=== PATIENT | female | born 1955 | race Caucasian/White ===

== ENCOUNTER 2020-02-13 05:28 | Emergency (ER) | payer BC, SELFPAY ==
--- NOTE | ~2020-02-13 | CT_ITS ---
EXAMINATION: CT abdomen pelvis w con DATE: 02/13/2020 06:36 INDICATION: Right flank pain. TECHNIQUE: Computed tomography (CT) of the abdomen and pelvis was performed with 100 mL Omnipaque 350 intravenous contrast. Automated exposure control and iterative reconstruction technique were employe d. The dose-length product was 244.22 mGy-cm. COMPARISON: CT abdomen and pelvis 10/09/2014 FINDINGS: The visualized portions of the lung bases demonstrate mild atelectasis. No pleural effusion . The heart size is normal. No pericardial effusion. The liver, gallbladder, spleen, pancreas, and ad renal glands are normal. There is a 2.1 cm cyst in right kidney. There is a delayed right-sided contr ast nephrogram. There is mild right hydronephrosis and hydroureter. There is a 3 mm stone in distal r ight ureter. There is a 6 mm cyst in left kidney. There are 6 stones in left kidney measuring up to 4 mm. There is diverticulosis of the colon without evidence of diverticulitis. There are no dilated lo ops of bowel. The appendix is normal. There are no pathologically enlarged lymph nodes. There is no f ree intraperitoneal fluid. There is severe lower lumbar spondylosis. IMPRESSION: 1. 3 mm stone in distal right ureter with mild right hydronephrosis and hydroureter. 2. Nonobstructing left kidney stones. Reviewed, dictated and finalized at location A. IMPRESSION: 1. 3 mm stone in distal right ureter with mild right hydronephrosis and hydrour eter. 2. Nonobstructing left kidney stones.
[2020-02-13 05:34] VITALS: BP 124/65; PULSE 90; RESP 20; TEMP 36.5; O2SAT 99
[2020-02-13] MEDS: ONDANSETRON INJ 4 MG/2 ML VIAL IV PUSH (05:49)
[2020-02-13] MEDS: SODIUM CHLORIDE 0.9% IV 1,000 ML 999 ML IV CONT (05:49)
--- NOTE | 2020-02-13 05:52 | ED.ABDPAIN ---
HPI - Abdominal Pain General Chief Complaint: Abdominal Pain <Savannah Dominique MD - Last Filed: 02/15/20 07:45> Stated Complaint: kidney stones <Savannah Dominique MD - Last Filed: 02/15/20 07:45> Time Seen by Provider: 02/13/20 05:42 <Savannah Dominique MD - Last Filed: 02/15/20 07:45> History of Present Illness HPI narrative: Patient presents to the ED with her for severe right flank pain since 2 AM. She has a history of kidney stones and wants had to have surgery for 1. She does not know the size of her large stone. She has not had fever chills or sweats. She gauges the pain at 9 out of 10. She has had blood in her urine. She has not been sick otherwise. The pain is in her posterior right flank and radiates around to the right groin. Pain is similar to other kidney stones. <Savannah Dominique MD - Last Filed: 02/15/20 07:45> MD elicited complaint: abdominal pain and flank pain <Savannah Dominique MD - Last Filed: 02/15/20 07:45> Pertinent past history: kidney stones <Savannah Dominique MD - Last Filed: 02/15/20 07:45> Onset (ago): hour(s) <Savannah Dominique MD - Last Filed: 02/15/20 07:45> Pain Consistency: constant <Savannah Dominique MD - Last Filed: 02/15/20 07:45> Location: R flank <Savannah Dominique MD - Last Filed: 02/15/20 07:45> Severity: severe <Savannah Dominique MD - Last Filed: 02/15/20 07:45> Quality: stabbing <Savannah Dominique MD - Last Filed: 02/15/20 07:45> Radiation: RLQ <Savannah Dominique MD - Last Filed: 02/15/20 07:45> Exacerbating factors: nothing <MD Anand Kemp Last Filed: 02/15/20 07:45> Relieving factors: nothing <Savannah Dominique MD - Last Filed: 02/15/20 07:45> Related Data Home Medications: Home Medications Medication Instructions Recorded Confirmed erenumab-aooe [Aimovig mg SUBCUT 02/13/20 Autoinjector] topiramate 02/13/20 verapamil mg PO 02/13/20 <Savannah Dominique MD - Last Filed: 02/15/20 07:45> Allergies/Adverse Reactions: Allergies Allergy/AdvReac Type Severity Reaction Status Date / Time codeine Allergy Severe Vomiting Verified 02/13/20 05:39 <Savannah Dominique MD - Last Filed: 02/15/20 07:45> Review of Systems Review of Systems: Narrative: CONSTITUTIONAL: Denies fever, chills, or sweats. EYES: Denies visual changes, redness, or discharge. ENT: Denies rhinorrhea, congestion, sore throat, or otalgia. CARDIOVASCULAR: Denies chest pain, palpitations, or edema. RESPIRATORY: Denies cough or dyspnea. GASTROINTESTINAL: She has severe abdominal pain, and nausea, vomiting, but not or diarrhea. GENITOURINARY: Denies dysuria but has hematuria. SKIN: Denies rash or itching. MUSCULOSKELETAL: Denies back pain, joint pain, or myalgia. NEUROLOGIC: Denies headache, numbness, or weakness. <Savannah Dominique MD - Last Filed: 02/15/20 07:45> All systems reviewed & are unremarkable except as noted in HPI and below <Savannah Dominique MD - Last Filed: 02/15/20 07:45> [facility] Social History Social History: Social History (Updated 02/13/20 @ 05:55 by Savannah Dominique MD) Smoking status: Never smoker Alcohol intake: never Substance use: never <Savannah Dominique MD - Last Filed: 02/15/20 07:45> Exam Narrative: Exam Narrative: GENERAL: Walking bent over. Moderate distress. HEAD: Normocephalic, atraumatic. EYES: PERRLA and EOMI. ENT: Nares clear, no rhinorrhea or epistaxis. Mucous membranes moist. NECK: Supple. CHEST: Clear to auscultation. No respiratory distress. HEART: Regular rate and rhythm. No murmur heard. Normal peripheral pulses. ABDOMEN: Soft, nontender, nondistended, normal active bowel sounds. EXTREMITIES: Normal range of motion. No edema. SKIN: Warm, dry, no rash. NEURO: No focal deficits. Alert and oriented x3. PSYCH: Normal mood and affect. <Savannah Dominique MD - Last Filed: 02/15/20 07:45> Course Vital Signs Vital signs: Vital Signs Temperature 97.7 F 02/13/20 05:34 P
[2020-02-13] MEDS: MORPHINE SULFATE 4 MG/ML INJ IV PUSH ×2 (05:56→07:00)
[2020-02-13] MEDS: TAMSULOSIN HCL 0.4 MG CAPSULE PO (05:56)
[2020-02-13 06:13] LABS: Basophils Absolute Auto 0.1 K/mm3 (0.0-0.1); Basophils Percent Auto 0.5 % (0.2-1.2); Eosinophils Absolute Auto 0.1 K/mm3 (0-0.3); Eosinophils Percent Auto 0.7 % (0-4.4); Hematocrit 38.7 % (37.0-47.0); Hemoglobin 13.1 g/dL (12.0-15.0); Immature Granulocyte Absolute 0.04 K/mm3 (0.00-0.031); Immature Granulocyte Percent A 0.4 % (0-0.5); Lymphocytes Absolute Auto 2.49 K/mm3 (0.9-3.2); Mean Corpuscular HGB Conc 33.9 g/dl (32-36); Mean Corpuscular Hemoglobin 30.1 pg (26-34); Mean Platelet Volume 10.4 fl (7.4-10.4); Monocytes Absolute Auto 0.4 K/mm3 (0.1-0.6); Monocytes Percent Auto 3.7 % (2.6-8.5); Neutrophils Absolute Auto 6.6 K/mm3 (1.3-6.7); Neutrophils Percent Auto 68.7 % (45.5-73.1); Platelet Count Result 261 k/mm3 (150-375); Red Blood Count 4.35 M/mm3 (4.2-5.4); Red Cell Distribution Width 11.9 % (11.5-14.5); White Blood Count 9.6 K/mm3 (4.5-10.0)
[2020-02-13 06:20] LABS: Add Urine Microscopic? YES; Appearance Urine Turbid (Clear); Bilirubin Urine Negative (Negative); Blood Urine 3+ (Negative); Color Urine Yellow (Yellow); Glucose Urine UA Negative (Negative); Ketones Urine Negative (Negative); Leukocyte Esterase Ur Negative LEU/UL (Negative); Mucus Urine Rare /lpf; Nitrate Urine Negative (Negative); Protein Urine 1+ mg/dL (Negative); RBC Urine >75 /hpf (0-2); Specific Grav Ur 1.014 (1.001-1.035); Squamous Epithelial Cell Urine Occasional /hpf (Few); Urobilinogen Urine Negative mg/dL (<2.0); WBC Urine 51-75 /hpf
--- NOTE | 2020-02-13 06:23 | PC.NURSE ---
Patient being taken to CT.
[2020-02-13 06:24] LABS: Alanine Aminotransferase 20 U/L (4-35); Alkaline Phosphatase 89 U/L (38-126); Aspartate Amino Transferase 26 U/L (14-36); Bilirubin,Total 0.4 mg/dL (0.2-1.3); Blood Urea Nitrogen 16 mg/dL (7-17); Calcium 9.1 mg/dL (8.4-10.2); Carbon Dioxide 22 mmol/L (22-30); Chloride 111 mmol/L (98-107); Estimated Glomerular Filt Rate 41; Glucose 129 mg/dL (65-105); Sodium 141 mmol/L (137-145)
[2020-02-13 06:27] LABS: Lipase 232 U/L (23-300)
[2020-02-13] MEDS: METOCLOPRAMIDE HCL INJ 10 MG/2 ML VIAL IV PUSH (07:00)
[2020-02-13 07:13] VITALS: BP 102/55; PULSE 81; RESP 15; O2SAT 100
--- NOTE | 2020-02-13 07:14 | PC.NURSE ---
ASSUMED PT CARE FROM [facility] AT THIS TIME AFTER BEDSIDE REPORT.
--- NOTE | 2020-02-13 07:39 | PC.NURSE ---
PT STATES THAT HER NAUSEA HAS SUBSIDED AT THIS TIME.
[2020-02-13 08:24] VITALS: BP 108/68; PULSE 78; RESP 18; O2SAT 100
== END 2020-02-13 08:25 | disposition home or self-care (01) ==
PROVIDERS: Emergency Medicine; Emergency Provider Emergency Medicine
DX: N13.2 Hydronephrosis with renal and ureteral calculous obstruction (principal)
CPT/HCPCS: 36415; 74177; 80053; 81001; 83690; 85025; 87086; 96361; 96365; 96375; 96376; 99284; A9270; J0696; J2270; J2405; J2765; J7030; Q9967

== ENCOUNTER 2024-09-08 15:41 | Emergency (ER) | payer MEDICARE, SELFPAY ==
--- NOTE | 2024-09-08 15:42 | ED_ITS ---
HPI - Back Pain/Injury General Chief Complaint: Upper Respiratory Infection Stated Complaint: back pain Time Seen by Provider: 09/08/24 15:42 Source: patient Mode of arrival: ambulatory Limitations: no limitations History of Present Illness HPI Narrative: Kira is a 69-year-old female patient presenting to the clinic today with complaints of right flank pain that started around 2:00 a.m. this morning. She reports that woke her up. Is having pain with taking a deep breath. History of PE in 2022. Was in the hospital for 7 days with PE in 2022. States that this feels just like the back pain she had when she had a pulmonary embolism in 2022. She contacted her primary care doctor and they suggested she come to the urgent care to rule out a urinary tract infection. She denies any urinary symptoms. Denies any fevers, chills, or body aches. Is having pain to the right flank with inspiration. Denies any chest pain or shortness of breath. Just got over having flu or COVID possibly last week. Takes a baby aspirin daily. Related Data Home Medications ?Medication ?Instructions ?Recorded ?Confirmed ?Last Taken ?Type topiramate 25 mg tablet 02/13/20 Unknown History aspirin 81 mg tablet,delayed 81 mg PO DAILY 09/08/24 Unknown History release (Adult Low Dose Aspirin) lisinopril 10 mg tablet mg 09/08/24 Unknown History rizatriptan 10 mg tablet mg 09/08/24 Unknown History Allergies Allergy/AdvReac Type Severity Reaction Status Date / Time codeine AdvReac Mild Vomiting Verified 09/08/24 15:53 Review of Systems Review of Systems: Pertinent positives per HPI. Patient denies any fever, chills, rash, headache, visual changes, dizziness, cough, shortness of breath, chest pain, palpitations, nausea, vomiting, diarrhea, constipation, abdominal pain, or any urinary issues. PMFSH Social History Social History Smoking status: Never smoker Alcohol intake: never Substance use: never Comments At the time of my signature, I reviewed and agree with the nursing past medical, surgical, social, and family history. There is no relevant family history pertinent to the patient complaint. Exam Narrative: General: Well-developed, well nourished, in no apparent distress Head: Normocephalic, atraumatic Eyes: Pupils equally round and reactive to light bilaterally, EOM intact, sclera and conjunctive clear, no discharge, lids normal Ears: TMs intact and clear, ear canals clear, no drainage, grossly hearing normal. Nose: Nares patent, no discharge, no inflammation, no sinus tenderness. Mouth: Oral pharynx without lesions or masses, good dentition, MMM. Neck: Supple, trachea midline, no enlargement of anterior or posterior cervical nodes, no thyroid masses or goiter palpable. Cardio: Regular rate and rhythm, s1 and s2 normal, no murmur appreciated. Resp: Clear to auscultation bilaterally, no rhonchi, rales, wheezing or rubs Course Course Emergency Course: Portions of this record may have been created with voice recognition software. Level of Care: Express Care Visit Vital Signs Vital signs: Vital signs reviewed Transfer Transfered to: [facility] Transportation: Other (Private car) Transfer rationale: right flank pain-history of PE Accepting physician: Dr. Bose Transfer comments: Private car MDM - Back Pain/Injury MDM Narrative Medical decision making narrative: At the time of visit patient is resting comfortably on the exam table. Patient appears to be nontoxic. Plan: Patient reports the right flank pain feels similar as to when she had a pulmonary embolism in 2022. Patient denies any urinary symptoms or history of kidney stones. Recommend transfer to the ER for further evaluation. Patient would like to be transfer to [facility] in [place], [place]. Contacted Analisa OROZCO at [facility] emergency room and report was given for continuity of care in Dr. Bose accepts patient for transfer. Patient's to drive patient to the hospital Differential Diagnosis Differential diagnosis: Likely renal colic, pyelonephritis, thoracic back pain, AAA, discitis and other (Pulmonary embolism) Discharge Plan Discharge Clinical Impression: Right flank pain Patient Disposition: Acute Care Hospital Condition: Stable Instructions: Antibiotic Form Patient Language: [place]ican Prescriptions: No Action rizatriptan 10 mg tablet lisinopril 10 mg tablet aspirin [Adult Low Dose Aspirin] 81 mg tablet,delayed release (DR/EC) 81 mg PO DAILY topiramate 25 mg tablet Follow-up/Referrals: Janki,Shadia Rodriges NP [Primary Care Provider] - Time of Disposition: 16:16 Quality NIHSS Nursing Documentation ED NIHSS nursing documentation: reviewed/agree
--- OUTSIDE RECORDS SUMMARY | 2024-09-08 15:43 | XMS_ITS | Encounter Summary ---
Author Organization [facility] Address [facility] [place] [address] Care Team Providers Care Police Reserves Commander Name Role Phone Shadia Shearer Primary Care Provider [phone] Nieves Nathan MD Unavailable [phone] Roni London MD Unavailable [phone] Reason for Visit * Reason Onset Date Comments Back Pain 09/08/2024 Encounter Details Date Type Department Care Team (Late st Contact Info) Description 09/08/2024 Telephone [facility] - [place] [address] [place] [address] Shadia Shearer APNP [address] [place] [address] Back Pain Social History Tobacco Use Types Packs/Day Years Used Date Smoking Tobacco: Never Smokeless Tobacco: Never Alcohol Use Standard Drinks/Week Comments Yes 0 (1 standard drink = 0.6 oz pure alcohol) a taste of wine maybe q3 months- (03/13/2020) Humiliation, Afraid, Rape, and Kick questionnair e Answer Date Recorded Within the last year, have y ou been afraid of your partner or ex-partner? No 04/08/2023 Within the last year, have y ou been humiliated or emotionally abused in other ways by your partner or ex-partner? No Within the last year, have y ou been kicked, hit, slapped, or otherwise physically hurt by your partner or ex-partner? No 04/08/2023 Within the last year, have y ou been raped or forced to have any kind of sexual activity by your partner or ex-partner? No 04/08/2023 AUDIT-C Answer Date Recorded Q1: How often do you have a drink containing alc ohol? Never 03/13/2020 Average Number of Drinks Not on file 020 Frequency of Binge Drinking Not on file 02/23 Overall Financial Resource Strain (CARDIA) Answe r Date Recorded How hard is it for you to pa y for the very basics like food, housing, medical care, and heating? Not hard at all 04/08/2023 PHQ-2 Answer Date Recorded Patient Health Questionnaire-2 Score 0 03/03/2023 [facility] - Occupational Stress Questionnaire Answer Date Recorded Do you feel stress - tense, restless, nervous, or anxious, or unable to sleep at night because your mind is troubled all the time - these days? Not at all 04/08/2023 Hunger Vital Sign Answer Date Recorded Within the past 12 months, y ou worried that your food would run out before you got the money to buy more. Never true 04/08/20 23 Within the past 12 months, t he food you bought just didn't last and you didn't have money to get more. Never true 04/08/2023 PRAPARE - Transportation Answer Date Re corded In the past 12 months, has l ack of transportation kept you from medical appointments or from getting medications? No 03/26 In the past 12 months, has l ack of transportation kept you from meetings, work, or from getting things needed for daily living? No 04/08/2023 Housing Stability Vital Sign Answer Daryl e Recorded In the last 12 months, was t here a time when you were not able to pay the mortgage or rent on time? No 04/08/2023 In the last 12 months, how many places have you lived? 1 04/08/2023 In the last 12 months, was t here a time when you did not have a steady place to sleep or slept in a care home (including now)? No 04/08/2023 Comments No Sex and Gender Information Value Date Recorded Sex Assigned at Not on file Legal Sex Female 9:42 AM MED SPEC Gender Identity Not on file Sexual Orientation Not on file documented as of this encounter Functional Status * Are you deaf or do you have serious difficulty hearing Answer Date of Assessment Author Status No 04/08/2023 2:00 PM Jumana Figueroa RN Active * Are you blind or do you have serious difficulty seeing, even when wearing glasses? Answer Date of Assessment Author Status No 04/08/2023 2:00 PM Jumana Figueroa RN Active * Do you have serious difficulty walking or climbing stairs? Answer Date of Assessment Author Status Yes 04/08/2023 2:00 PM Jumana Figueroa RN Active * Do you have difficulty dressing or bathing? Answer Date of Assessment Author Status No 04/08/2023 2:00 PM Jumana Figueroa RN Active * Because of a physical, mental, or emotional condition, do you have difficulty doing errands alone such as visiting a doctor's office or shopping? Answer Date of Assessment Author Status No 04/08/2023 2:00 PM Jumana Figueroa RN Active documented as of this encounter Mental Status * Because of a physical, mental, or emotional condition, do you have serious difficulty concentrating, remembering, or making decisions? Answer Entry Date Author Status No 04/08/2023 2:00 PM Jumana Figueroa RN Active documented in this encounter Progress Notes * Stephenie Nunez CMA - 09/08/2024 3:15 PM CST Pt states she is having pain in the lower right side of her back that is increasing throughout the day, unable to lay down. Advised that she go to urgent care for a work up. PT agreed. SPEC * Dedra Saunders - 09/08/2024 2:37 PM CST Symptoms: right side of back is in pain, when taking deep breaths it is painful Duration: this morning, gradually gets worse as the day carries on Using any Rx or OTC medications (If yes, please list): heating pad Any additional information from caller: please advise ph. [phone] SPEC documented in this encounter Plan of Treatment Upcoming Encounters Date Type Department Care Team (Late st Contact Info) Description 09/12/2024 8:00 AM MED SPEC Office Visit [facility] - [place] [address] [place] [phone] Shadia Shearer APNP [address] [place], [place] [phone] 12/13/2024 9:30 AM CDT Office Visit [facility] [phone] Ana Paula Matias MD [facility]. [facility] [address] [place] [address] documented as of this encounter Goals Goal Patient Goal Type Associated Problems Recent Progress Patient-Stated? Author Patient will return to prior living situation and remain independent in ADLs upon discharge from hospital Lifestyle No Amaya Lopes, RN documented as of this encounter Visit Diagnoses Not on filedocumented in this encounter Additional Health Concerns Assessment Noted Time PHQ-9 Depression Total Score: 0 03/03/20 23 11:32 AM CDT documented as of this encounter Care Teams Police Reserves Commander Relationship Specialty Start Date End Date Shadia Shearer APNP [address] [place], [place] [phone] PCP - General NURSE PRACTITIONER 08/11/18 [place] [address] [place] [address] [address] [place] [address] Referring Physician RADIATION ONCOLOGY 01/28/22 Roni London MD [address] [place] [address] MEDICAL OFFICE BUILDING [address] [place] [address] INTERNAL MEDICINE 01/28/22 documented as of this encounter
--- OUTSIDE RECORDS SUMMARY | 2024-09-08 15:43 | XMS_ITS | Patient Health Summary ---
Author Organization [facility] Address [address] [place] [address] Care Team Providers Care Landscape Drafter Name Role Phone Unavailable Primary Care Provider Unavailabl e Note from [facility],non-owned Affiliates and Associated Physician Practices is amultiple site organization consisting of ambulatory clinics and hospital sitesin [place], [place] and [place]. This disclosure is being madepursuant to the Care Everywhere program and may not contain all information available regarding this patient. Last updated 18.[facility] edjing Social History Tobacco Use Types Packs/Day Years Used Date Smoking Tobacco: Never Assessed Sex and Gender Information Value Date Recorded Sex Assigned at Not on file Gender Identity Not on file Sexual Orientation Not on file Procedures * DERMATOPATHOLOGY(Performed 06/02/2023) Performed for Squamous cell carcinoma of skin of right upper limb, including shoulder * DERMATOPATHOLOGY(Performed 04/05/2023) Performed for Neoplasm of uncertain behavior of skin Results * DERMATOPATHOLOGY (06/02/2023 12:00 AM CLERICAL ASSISTANT) Only the most recent of2 resultswithin the time period is included. Case Report Dermatopathology Report Case: [id number] Authorizing Provider: Sacha Gilmore MD Collected: 06/02/2023 12:00 AM Ordering Location: [facility] DermPath Lab Received: 06/03/2023 01:27 PM Pathologist: Pilar Spear MD Specimen: Skin, right anterior shoulder 3 3:49 PM CLERICAL ASSISTANT DERMATOPATHOLOGY LABORATORY Final Diagnosis Specimen A. SKIN, right anterior shoulder: DERMAL SCAR RESIDUAL SQUAMOUS CELL CARCINOMA NOT IDENTIFIED (L90.5) 3 3:49 PM CLERICAL ASSISTANT DERMATOPATHOLOGY LABORATORY Clinical History Squamous Cell Carcinoma. Check Margins. 3 3:49 PM CLERICAL ASSISTANT DERMATOPATHOLOGY LABORATORY Gross Description Specimen A: Received is one formalin filled container labeled with the patient's name and designated right anterior shoulder. The specimen consists of a non-oriented ellipse of skin measuring [id number] mm. The epidermal surface is unremarkable. The margin is inked green. The 12 o'clock and 6 o'clock tips are submitted in cassette 1. The remainder of the ellipse is serially sectioned and submitted in cassette 2-3. Jar 0. 3 3:49 PM [facility] DERMATOPATHOLOGY LABORATORY Microscopic Description Specimen A. SKIN, right anterior shoulder: There are fibroblasts and collagen bundles oriented parallel to the skin surface. There are elongated blood vessels, some of which are oriented perpendicular to the skin surface. No residual squamous cell carcinoma is identified. 3 3:49 PM [facility] DERMATOPATHOLOGY LABORATORY Disclaimer An external and internal positive and negative controls are appropriate for the histochemical, immunohistochemical and immunofluorescence stain(s) in this case (if any), except where stated explicitly. The performance characteristics of the stain(s) cited in this report were developed and its performance characteristic determined by the Dermatopathology Laboratory at [facility], directed by Dr. Shannon Gilbert. These tests need not be, and therefore are not, approved by the [place] Food and Drug Administration. The tests are used for clinical purposes. Billing Codes Specimen Charges Stain Charges 22231 1 3 3:49 PM [facility] DERMATOPATHOLOGY LABORATORY Embedded Images 3 3:49 PM [facility] DERMATOPATHOLOGY LABORATORY Pathology/Cytolog y TISSUE SPECIMEN FROM SKIN / Unknown 06/02/2023 06/03/2023 1:27 PM [facility] Scaha Gilmore MD LAB - PATHOLOGY/CYTO LOGY ORDERABLES DERMATOPATHOLOGY LABORATORY [facility] - Department of Dermatology [address], [address] [phone]
--- OUTSIDE RECORDS SUMMARY | 2024-09-08 15:43 | XMS_ITS | Encounter Summary ---
Author Organization [facility] Address [address] [facility] [place] [address] Care Team Providers Care Grading Supervisor Name Role Phone Unavailable Primary Care Provider Unavailabl e Encounter Details Date Type Department Care Team (Late st Contact Info) Description 06/02/2023 Lab Requisition [facility] - DermPath Lab [address] [facility] [place] [address] Sacha Gilmore MD [facility] [address] [place] [phone] Squamous cell carcinoma of skin of right upper limb, including shoulder Social History Tobacco Use Types Packs/Day Years Used Date Smoking Tobacco: Never Assessed Sex and Gender Information Value Date Recorded Sex Assigned at Not on file Gender Identity Not on file Sexual Orientation Not on file documented as of this encounter Plan of Treatment Not on file documented as of this encounter Procedures Procedure Name Priority Date/Time Associated Diagnosis Comments DERMATOPATHOLOGY Routine 06/02/2023 12:0 0 AM MECHANICAL APPLICATIONS ENGINEER Squamous cell carcinoma of skin of right upper limb, including shoulder documented in this encounter Results * DERMATOPATHOLOGY (06/02/2023 12:00 AM MECHANICAL APPLICATIONS ENGINEER) Case Report Dermatopathology Report Case: [id number] Authorizing Provider: Sacha Gilmore MD Collected: 06/02/2023 12:00 AM Ordering Location: [facility] DermPath Lab Received: 06/03/2023 01:27 PM Pathologist: Pilar Spear MD Specimen: Skin, right anterior shoulder 3 3:49 PM MECHANICAL APPLICATIONS ENGINEER DERMATOPATHOLOGY LABORATORY Final Diagnosis Specimen A. SKIN, right anterior shoulder: DERMAL SCAR RESIDUAL SQUAMOUS CELL CARCINOMA NOT IDENTIFIED (L90.5) 3 3:49 PM MECHANICAL APPLICATIONS ENGINEER DERMATOPATHOLOGY LABORATORY Clinical History Squamous Cell Carcinoma. Check Margins. 3:49 PM [facility] DERMATOPATHOLOGY LABORATORY Gross Description Specimen A: Received is one formalin filled container labeled with the patient's name and designated right anterior shoulder. The specimen consists of a non-oriented ellipse of skin measuring 09e85a3 mm. The epidermal surface is unremarkable. The margin is inked green. The 12 o'clock and 6 o'clock tips are submitted in cassette 1. The remainder of the ellipse is serially sectioned and submitted in cassette 2-3. Jar 0. 3:49 PM [facility] DERMATOPATHOLOGY LABORATORY Microscopic Description Specimen A. SKIN, right anterior shoulder: There are fibroblasts and collagen bundles oriented parallel to the skin surface. There are elongated blood vessels, some of which are oriented perpendicular to the skin surface. No residual squamous cell carcinoma is identified. 3:49 PM [facility] DERMATOPATHOLOGY LABORATORY Disclaimer An external and internal positive and negative controls are appropriate for the histochemical, immunohistochemical and immunofluorescence stain(s) in this case (if any), except where stated explicitly. The performance characteristics of the stain(s) cited in this report were developed and its performance characteristic determined by the Dermatopathology Laboratory at [facility], directed by Dr. Shannon Gilbert. These tests need not be, and therefore are not, approved by the [place] Food and Drug Administration. The tests are used for clinical purposes. Billing Codes Specimen Charges Stain Charges 17586 1 3:49 PM [facility] DERMATOPATHOLOGY LABORATORY Embedded Images 3:49 PM [facility] DERMATOPATHOLOGY LABORATORY Pathology/Cytolog y TISSUE SPECIMEN FROM SKIN / Unknown 06/02/2023 06/03/2023 1:27 PM MECHANICAL APPLICATIONS ENGINEER Sacha Gilmore MD LAB - PATHOLOGY/CYTO LOGY ORDERABLES DERMATOPATHOLOGY LABORATORY [facility] - Department of Dermatology [address], [address] [phone] documented in this encounter Visit Diagnoses Diagnosis Squamous cell carcinoma of skin of right upper limb, including shoulder Squamous cell carcinoma of skin of upper limb, including shoulder documented in this encounter
--- OUTSIDE RECORDS SUMMARY | 2024-09-08 15:43 | XMS_ITS | Clinical Summary ---
Author Organization [facility] [employer] Address [address] [place] [address] Care Team Providers Care Wax Pumper Name Role Phone Unavailable Primary Care Provider Unavailabl e Source Comments [facility] [employer],non-owned Affiliates and Associated Physician Practices is amultiple site organization consisting of ambulatory clinics and hospital sitesin [place], [place], [place] and [place]. This disclosure is being madepursuant to the Care Everywhere program and may not contain all information available regarding this patient. Last updated 18.[facility] [employer] Social History Tobacco Use Types Packs/Day Years Used Date Smoking Tobacco: Never Assessed Sex and Gender Information Value Date Recorded Sex Assigned at Not on file Gender Identity Not on file Sexual Orientation Not on file Plan of Treatment Health Maintenance Due Date Last Done Comments BONE DENSITY TESTING 1955 COLOGUARD (AGES 45-75) - COL ON CA SCREENING 1955 COLON MONITORING 1955 COLONOSCOPY - COLON CA SCREENING 1955 CT COLONOGRAPHY - COLON CA SCREENING 1955 Colorectal Cancer Screening 1955 FIT - COLON CA SCREENING 1955 FLEX SIG - COLON CA SCREENING 1955 LIPID TESTING 1955 MAMMOGRAM 1955 MEDICARE AWV 12 MONTHS 1955 HEPATITIS C SCREENING 05/22/1973 DTAP/TDAP/TD VACCINES (1 - Tdap) 1974 PNEUMOCOCCAL VACCINE 50+ (1 of 1 - PCV) 2005 ZOSTER VACCINE (1 of 2) 2005 COVID-19 VACCINE ( - 2023-2 5 season) 2024 INFLUENZA VACCINE (#1) 2024 DEPRESSION SCREENING 07/26/2024 Respiratory Syncytial Virus (RSV) Vaccine Pt: or over 60 yrs (1 - 1-dose 75+ series) 2030 HEPATITIS B VACCINE Aged Out No longe r eligible based on patient's age to complete this topic HIB VACCINE Aged Out No longer eligi ble based on patient's age to complete this topic HPV VACCINE Aged Out No longer eligi ble based on patient's age to complete this topic MENINGOCOCCAL (Group B) VACCINE Aged Out No longer eligible based on patient's age to complete this topic MENINGOCOCCAL VACCINE Aged Out No lalita odalys eligible based on patient's age to complete this topic
--- OUTSIDE RECORDS SUMMARY | 2024-09-08 15:43 | XMS_ITS | Clinical Summary ---
Author Organization [facility] Address [address] [place] [address] Care Team Providers Care Lockstitch Topstitcher Name Role Phone Shadia Shearer VIKI Primary Care Provider [phone] Nieves Nathan MD Unavailable [phone] Roni London MD Unavailable [phone] Allergies Active Allergy Reactions Criticality Noted Date Comments Codeine Nausea Only,Vomiting 09/07/2018 Reaction: Vomiting, Medications Calcium Carb-Cholecalcife rol (CALCIUM 500 + D3 OR) Take 2 tablets by mouth daily. Calcium 500 mg with Vitamin D 1000 units Active topiramate (TOPAMAX) 25 MG tabletIndications :Periodic headache syndrome, not intractable,Healt hcare maintenance Take 3 tablets (75 mg total) by mouth daily. 270 tablet 3 3 Active rizatriptan (MAXALT) 10 MG tabletIndications :Periodic headache syndrome, not intractable,Healt hcare maintenance Take 1 tablet (10 mg total) by mouth as needed. FOR MIGRAINE 30 tablet 3 3 Active lisinopril (PRINIVIL) 10 MG tabletIndications :Primary hypertension Take 1 tablet (10 mg total) by mouth daily. 90 tablet 3 3 Active aspirin 81 MG chewable tablet Chew 1 tablet (81 mg total) by mouth daily. Active Active Problems Problem Noted Date Diagnosed Date Pulmonary emboli ([facility]) 04/08/2023 Ductal carcinoma in situ (DCIS) of left breast 0 11/26/2021 Abnormal EKG 2018 Overview (06/16/2019): Last Assessment & Plan: Her EKG has T-wave inversion in V1 and V2 with an incomplete right bundle branch block. We will in further investigate this mild abnormality in the setting of symptoms of atypical chest pain with exercise stress test as above. Atypical chest pain 2018 Overview (06/16/2019): Last Assessment & Plan: Her chest pain is atypical/non-anginal in nature. The amount of exertion that the patient is limited to is going up and downstairs and taking care of her grandkids. The patient does not exercise regularly and her exercise capacity is unknown at this time. Given her significant family history and underlying hypertension, it would be prudent to evaluate for ischemia with provocative testing. We will obtain a treadmill stress ECG at this time. Essential hypertension 05/23/2018 Overview (06/16/2019): Last Assessment & Plan: Her blood pressure is currently well controlled. She is currently on verapamil for blood pressure control and likely for control of her migraines. We will obtain a CMP at this time to evaluate her renal function and electrolytes. Family history of heart disease 05/23/2018 Overview (06/16/2019): Last Assessment & Plan: Given her significant family history, hypertension, and atypical chest pain we will obtain provocative testing with a stress ECG. We will also obtain a lipid panel and high sensitivity CRP to optimize her risk factors. Migraine 05/23/2018 Nephrolithiasis 05/23/2018 Osteopenia 09/12/2012 Encounters Date Type Department Care Team Description 09/08/2024 Telephone [facility] Family and Sports Medicine - [place] [phone] Shadia Shearer APNP Back Pain from Last 3 Months Immunizations Name Administration Dates Next Due Influenza Adult (Generic) 07/03/2020(Def erred: Patient/family declined),04/25/2018 MODERNA COVID-19 (12+) MRNA, LNP-S, PF, 100 MCG/ 0.5 ML DOSE 01/31/2021,01/03/2021 Tdap (Boostrix) 07/13/2013 Tdap (Generic) 09/23/2017 Family History Medical History Relation Comments Cancer Brother skin cancer Heart Attack Brother Heart Disease Brother Alzheimers Father Cancer Father penile cancer Diabetes Father Heart Attack Father Heart Disease Father defibrillator, M Is Cancer Mother Colon Cancer Mother Diabetes Mother Hypertension Mother Heart Disease Paternal Grandmother Hyperlipidemia Neg Hx Relation Status Comments Brother Alive Daughter 1 Alive Daughter 2 Alive Father (Age 74) Mother (Age 64) of colon cancer Paternal Grandmother Son Alive Social History Tobacco Use Types Packs/Day Years Used Date Smoking Tobacco: Never Smokeless Tobacco: Never Tobacco Cessation:Counseling Given: Not Answered Alcohol Use Standard Drinks/Week Comments Yes 0 [...] Recorded Patient Health Questionnaire-2 Score 0 03/03/2023 [facility] [place] [facility] Occupat ional Health - Occupational Stress Questionnaire Answer Date Recorded [...] place to sleep or slept in a fdc (including now)? No 04/08/2023 Comments No Sex and Gender Information Value Date Recorded Sex Assigned at Not on file Legal Sex Female 9:42 AM ELECTRICAL ENGINEER Gender Identity Not on file Sexual Orientation Not on file Last Filed Vital Signs Vital Sign Reading Time Taken Comments Blood Pressure 120/72 12/08/2023 10:02 AM CDT Pulse 70 12/08/2023 10:02 AM CDT Temperature 36.3 C (97.4 F) 04/16/2023 9:29 AM CDT Respiratory Rate 21 04/16/2023 9:29 AM CDT Oxygen Saturation 96% 12/08/2023 10:02 AM CDT Inhaled Oxygen Concentration - - Weight 48.6 kg (107 lb 3.2 oz) 12/08/2023 10:02 AM CDT Height 152.4 cm (5') 12/08/2023 10:02 AM CDT Body Mass Index 20.94 12/08/2023 10:02 AM CDT Plan of Treatment Upcoming Encounters Date Type Department Care Team (Late st Contact Info) Description 09/12/2024 8:00 AM ELECTRICAL ENGINEER Office Visit [facility] - [place] [address] [place] [phone] Shadia Shearer APNP [address] [place], [place] [phone] 12/13/2024 9:30 AM CDT Office Visit [facility] [address] [place] [phone] Ana Paula Matias MD [address] [place] [address] Health Maintenance Due Date Last Done Comments Zoster Vaccines (1 of 2) 2005 Pneumococcal Vaccine: 65+ Years (1 of 1 - PCV) 2020 Mammogram Screening 11/13/2023 11/12/2021, 11/05/2021, 09/29/2021 COVID-19 Vaccine (3 - 2023-2 5 season) 2024 01/31/2021, 01/03/2021 Influenza Adult (#1) 2024 04/25/2018 PHQ-2 (Physician [place]) 07/26/2024 03/03/2023 Annual Medicare Wellness Visit 11/26/2024 07/10/2020 Postponed from 07/11 (Future Appointment) DTaP, Tdap and Td Vaccines ( 3 - Td or Tdap) 09/24/2027 09/23/2017, 07/13/2013 Colorectal Cancer Screening Colonoscopy (10 Years) 08/17/2028 08/17/2018 RSV Immunization or 60+ Years (1 - 1-dose 75+ series) 2030 Hepatitis C Completed 07/10/2020 Dexa Scan (General) Completed 07/01/2023 Meningococcal B Vaccine Aged Out No l onger eligible based on patient's age to complete this topic Meningococcal Vaccine Aged Out No lalita odalys eligible based on patient's age to complete this topic RSV Immunizations Under 20 Months Aged Out No longer eligible b ased on patient's age to complete this topic Goals Goal Patient Goal Type Associated Problems Recent Progress Patient-Stated? Author Patient will return to prior living situation and remain independent in ADLs upon discharge from hospital Lifestyle Amaya Love hydrotherapist Procedure Name Priority Date/Time Associated Diagnosis Comments MG DIAG W ANALISA LT DIGI Routine 11/12/2021 10:02 AM CDT Abnormal mammogram HEPATITIS C ANTIBODY Routine 07/10/2020 8:05 AM ELECTRICAL ENGINEER Need for hepatitis C screening test COLONOSCOPY GENERIC (SCAN ORDER) 08/17/2018 from Last 3 Months or Most Recently Relevant to Health Maintenance Results * MG DIAG W ANALISA LT DIGI (11/12/2021 10:02 AM CDT) Anatomical Region Laterality Modality Breast Left Mammography 11/12/2021 10:4 3 AM CDT Impressions 11/12/2021 12:24 PM CDT =====IMPRESSION:===== Prominent ductal structures in the medial inferior left breast. Internal echoes are noted possibly due to debris. This is most prominent in the region of the 9:00 position, 2 cm from the nipple. No discrete nodule is seen. No definite color flow enhancement internally is noted. MRI with and without contrast is recommended for further evaluation of these findings. Assessment: ACR BI-RADS 0 - INCOMPLETE: NEEDS ADDITIONAL IMAGING EVALUATION Recommendation: 1As discussed in report Left COMMENTS: Ordered By: SHENG Reddy [facility] Interpreted By: Matt Esparza MD, 11/12/2021 10:43 AM Narrative 11/12/2021 12:24 PM CDT EXAMINATION: Digital left diagnostic mammogram with 3-D tomography and ultrasound of the left breast [id number] EXAM DATE/TIME: 11/12/2021 9:48 AM REASON FOR EXAM: Abnormal mammogram COMPARISON: 11/05/2021, 09/29/2021, 10/15/2021, 07/17/2020 TECHNIQUE: Digital diagnostic mammography of the left breast was performed with 3-D Tomography. This study was read with the assistance of a computer-aided detection system. And ultrasound the left breast TISSUE DENSITY: The breast tissue is heterogeneously dense, which may obscure small masses. FINDINGS: Asymmetry in the inferior medial left breast is seen. Spot compression view shows no evidence of parenchymal distortion or definite focal mass. Ultrasound in this area shows multiple prominent ducts. No definite discrete mass is seen however there is evidence of some wall thickening and multiple areas. Internal debris or echoes are suspected particularly at the 9:00 position, 2 cm from the nipple. No color flow enhancement within the lumen of the ducts is noted. Biopsy marker in the medial left periareolar region is seen with history of recent biopsy. Sheng Curtis MD MAMMO Final Result * HEPATITIS C ANTIBODY (07/10/2020 8:05 AM ELECTRICAL ENGINEER) HEPATITIS C AB NON-REACTI VE NON-REACTI VE 07/10/2020 8:23 PM ELECTRICAL ENGINEER [facility] 07/10/2020 8:05 AM ELECTRICAL ENGINEER Sh[facility]ia [facility] Final Result [facility] [address] [place] [address], * COLONOSCOPY GENERIC (08/17/2018) 08/17/2018 [facility] Scanned SCANNING Final Resu lt from Last 3 Months or Most Recently Relevant to Health Maintenance Insurance MEDICARE AET[employer] Advance Directives * Full Code (Latest Code Status on File) Date Activated Date Inactivated Comments 04/08/2023 4:02 PM 04/10/2023 3:35 PM Care Teams Lockstitch Topstitcher Relationship Specialty Start Date End Date Shadia Shearer APNP [address] [place] [address] PCP - General NURSE PRACTITIONER 08/11/18 Nieves Nathan MD [address] [place] [address] [address] [place] [address] Referring Physician RADIATION ONCOLOGY 01/28/22 Roni London MD [address] [place] [address] [address] MEDICAL OFFICE BUILDING [address] [place] [address] INTERNAL MEDICINE 01/28/22
--- OUTSIDE RECORDS SUMMARY | 2024-09-08 15:43 | XMS_ITS | Referral Summary ---
Author Organization [facility] Address [address] [place] [address] Care Team Providers Care Audio Engineer Name Role Phone Unavailable Primary Care Provider Unavailabl e Source Comments [facility],non-owned Affiliates and Associated Physician Practices is amultiple site organization consisting of ambulatory clinics and hospital sitesin [place], [place], [place] and [place]. This disclosure is being madepursuant to the Care Everywhere program and may not contain all information available regarding this patient. Last updated 18.[facility] [employer] Social History Tobacco Use Types Packs/Day Years Used Date Smoking Tobacco: Never Assessed Sex and Gender Information Value Date Recorded Sex Assigned at Not on file Gender Identity Not on file Sexual Orientation Not on file Plan of Treatment Not on file
--- OUTSIDE RECORDS SUMMARY | 2024-09-08 15:43 | XMS_ITS | Encounter Summary ---
Author Organization [facility] Address [address] [facility] [place] [address] Care Team Providers Care Agency Operator Name Role Phone Unavailable Primary Care Provider Unavailabl e Encounter Details Date Type Department Care Team (Late st Contact Info) Description 04/05/2023 Lab Requisition [facility] - DermPath Lab [address] [facility] [place] [id number] Sacha Gilmore MD [facility] [address] [place] [phone] Neoplasm of uncertain behavior of skin Social History Tobacco Use Types Packs/Day Years Used Date Smoking Tobacco: Never Assessed Sex and Gender Information Value Date Recorded Sex Assigned at Not on file Gender Identity Not on file Sexual Orientation Not on file documented as of this encounter Plan of Treatment Not on file documented as of this encounter Procedures Procedure Name Priority Date/Time Associated Diagnosis Comments DERMATOPATHOLOGY Routine 04/05/2023 3:33 AM CDT Neoplasm of uncertain behavior of skin documented in this encounter Results * DERMATOPATHOLOGY (04/05/2023 3:33 AM CDT) Case Report Dermatopathology Report Case: [id number] Authorizing Provider: Sacha Gilmore MD Collected: 04/05/2023 03:33 AM Ordering Location: [facility] DermPath Lab Received: 04/06/2023 01:20 PM Pathologist: Brina Travis MD Specimens: A) - Skin, right anterior shoulder B) - Skin, right anterior upper arm C) - Skin, left lateral neck D) - Skin, left thigh 1:11 PM CDT DERMATOPATHOLOGY LABORATORY Final Diagnosis Specimen A. SKIN, right anterior shoulder: SQUAMOUS CELL CARCINOMA, WELL DIFFERENTIATED (C44.622) Specimen B. SKIN, right anterior upper arm: BENIGN VERRUCOUS KERATOSIS (L82.1) Specimen C. SKIN, left lateral neck: BENIGN VERRUCOUS KERATOSIS (L82.1) Specimen D. SKIN, left thigh: BENIGN VERRUCOUS KERATOSIS (L82.1) EPIDERMAL NECROSIS SUGGESTIVE OF EXCORIATION (L98.499) 3 1:11 PM [facility] DERMATOPATHOLOGY LABORATORY Clinical History A-D: SCC 3 1:11 PM [facility] DERMATOPATHOLOGY LABORATORY Gross Description Specimen A: Received is one formalin filled container labeled with the patient's name and designated right anterior shoulder. The specimen consists of a shave biopsy measuring 6x5x4 mm. Jar 0. Specimen B: Received is one formalin filled container labeled with the patient's name and designated right anterior upper arm. The specimen consists of a shave biopsy measuring 8x6x3 mm. Jar 0. Specimen C: Received is one formalin filled container labeled with the patient's name and designated left lateral neck. The specimen consists of a shave biopsy measuring 7x4x1 mm. Jar 0. Specimen D: Received is one formalin filled container labeled with the patient's name and designated left thigh. The specimen consists of a shave biopsy measuring 7x8x1 mm. Jar 0. 3 1:11 PM [facility] DERMATOPATHOLOGY LABORATORY Microscopic Description Specimen A. SKIN, right anterior shoulder: Arising in the epidermis and extending into the dermis there are irregularly shaped aggregates of keratinocytes showing evidence of premature cornification. Specimen B. SKIN, right anterior upper arm: Sections show hyperkeratosis, papillomatosis, hypergranulosis, and acanthosis. These histological findings can be seen in a verruca vulgaris or a seborrheic keratosis. Specimen C. SKIN, left lateral neck: Sections show hyperkeratosis, papillomatosis, hypergranulosis, and acanthosis. These histological findings can be seen in a verruca vulgaris or a seborrheic keratosis. Specimen D. SKIN, left thigh: Sections show hyperkeratosis, papillomatosis, hypergranulosis, and acanthosis. These histological findings can be seen in a verruca vulgaris or a seborrheic keratosis. The epidermis is focally necrotic and covered with a scale-crust. There is fibrin at the base. 3 1:11 PM CDT DERMATOPATHOLOGY LABORATORY Disclaimer An external and internal positive and negative controls are appropriate for the histochemical, immunohistochemical and immunofluorescence stain(s) in this case (if any), except where stated explicitly. The performance characteristics of the stain(s) cited in this report were developed and its performance characteristic determined by the Dermatopathology Laboratory at [facility], directed by Dr. Shannon Gilbert. These tests need not be, and therefore are not, approved by the [place] Food and Drug Administration. The tests are used for clinical purposes. Billing Codes Specimen Charges Stain Charges 76115 79211 [id number] 55992 1 1 1 1 3 1:11 PM CDT DERMATOPATHOLOGY LABORATORY Embedded Images 3 1:11 PM CDT DERMATOPATHOLOGY LABORATORY Pathology/Cytology TISSUE SPECIMEN FROM SKIN / Unknown 04/05/2023 3:33 AM CDT 04/06/2023 1:20 PM CDT Miscellaneous samples (specimen) TISSUE SPECIMEN FROM SKIN / Unknown 04/05/2023 3:33 AM CDT 04/06/2023 1:20 PM CDT Miscellaneous samples (specimen) TISSUE SPECIMEN FROM SKIN / Unknown 04/05/2023 3:33 AM CDT 04/06/2023 1:20 PM CDT Miscellaneous samples (specimen) TISSUE SPECIMEN FROM SKIN / Unknown 04/05/2023 3:33 AM CDT 04/06/2023 1:36 PM CDT Sacha Gilmore MD LAB - PATHOLOGY/CYTO LOGY ORDERABLES DERMATOPATHOLOGY LABORATORY [facility] - Department of Dermatology [facility] [address] [place] [address], [address]rd [place] [address], [facility] [phone] documented in this encounter Visit Diagnoses Diagnosis Neoplasm of uncertain behavior of skin documented in this encounter
--- OUTSIDE RECORDS SUMMARY | 2024-09-08 15:48 | XMS_ITS | Referral Summary ---
Author Organization [facility] Address [address] [place] [id number] Care Team Providers Care Mechanical Technical Service Specialist Name Role Phone Nieves Nathan MD Unavailable [phone] Wayne Curtis MD Unavailable [phone] Shadia Shearer NP Primary Care Provider [phone] Frida Nieto NP Unavailable + [phone] Allergies Active Allergy Reactions Criticality Noted Date Comments Codeine Vomiting Reaction: Vomiting, Medications topiramate (TOPAMAX) 25 mg tablet TAKE 3 TABLETS BY MOUTH EVERY DAY 10/10/2009 Active rizatriptan (MAXALT) 10 mg tabletIndicatio ns:Migraine TAKE 1 TABLET AT ONSET OF HEADACHE. MAY REPEAT EVERY 2 HOURS NEEDED. MAXIMUM 2 TABLETS IN 24 HOURS. Active calcium carbonate-vitam in D3 500mg (1,250mg) -600 unit tablet Take 1 tablet by mouth daily. Active lisinopriL (PRINIVIL,ZESTR IL) 10 mg tablet Take 1 tablet (10 mg total) by mouth daily 05/04/2023 Active aspirin 81 mg chewable tablet Take 1 tablet (81 mg total) by mouth daily Active Active Problems Problem Noted Date Diagnosed Date Ductal carcinoma in situ (DCIS) of left breast 0 11/26/2021 Cancer Staging:Clinical stage from 11/07/2021:Stage 0(cTis (DCIS), cN0, cM0, G3, ER+, MD-, HER2: Not Assessed) - Signed by Nieves Nathan MD on 11/26/2021 Atypical chest pain 2018 Assessment & Plan (2018 9:34 AM CDT): Her chest pain is atypical/non-anginal in nature. [...] a treadmill stress ECG at this time. Abnormal EKG 2018 Assessment & Plan (2018 9:48 AM CDT): Her EKG has T-wave inversion in V1 and V2 with an incomplete right bundle branch block. We will in further investigate this mild abnormality in the setting of symptoms of atypical chest pain with exercise stress test as above. Family history of heart disease 05/23/2018 Assessment & Plan (2018 9:36 AM CDT): Given her significant family history, hypertension, and atypical chest pain we will obtain provocative testing with a stress ECG. We will also obtain a lipid panel and high sensitivity CRP to optimize her risk factors. Migraine 05/23/2018 Essential hypertension 05/23/2018 Assessment & Plan (2018 9:36 AM CDT): Her blood pressure is currently well controlled. She is currently on verapamil for blood pressure control and likely for control of her migraines. We will obtain a CMP at this time to evaluate her renal function and electrolytes. Nephrolithiasis 05/23/2018 Osteopenia 09/12/2012 Social History Tobacco Use Types Packs/Day Years Used Date Smoking Tobacco: Never Smokeless Tobacco: Never AUDIT-C Answer Date Recorded Q1: How often do you have a drink containing alc ohol? Never 12/10/2021 Average Number of Drinks Not on file 022 Q3: How often do you have si x or more drinks on one occasion? Never 12/10/2021 Comments No Sex and Gender Information Value Date Recorded Sex Assigned at Not on file Legal Sex Female 12:41 AM CLAMMER Gender Identity Female 2018 8:08 AM CDT Sexual Orientation Not on file Occupation Industry Job Start Date Job End Date Retired Not on file Not on file Not on file Last Filed Vital Signs Vital Sign Reading Time Taken Comments Blood Pressure 147/68 03/06/2024 9:10 AM CDT Pulse 77 03/06/2024 9:10 AM CDT Temperature 36.7 C (98 F) 03/06/2024 9:10 AM CDT Respiratory Rate 16 03/06/2024 9:10 AM CDT Oxygen Saturation 99% 03/06/2024 9:10 AM CDT Inhaled Oxygen Concentration - - Weight 47.9 kg (105 lb 9.6 oz) 03/06/2024 9:10 A M CDT Height 153.7 cm (5' 0.5 ) 08/11/2023 8:06 AM CLAMMER Body Mass Index 20.28 08/11/2023 8:06 AM CLAMMER Plan of Treatment Not on file Procedures Procedure Name Priority Date/Time Associated Diagnosis Comments SCREENING MAMMOGRAM RIGHT W ANALISA UNILATERAL ONLY Schedule Routine, Read Routine (OP Routine) 10/22/2023 8:22 AM CDT Intraductal carcinoma in situ of left breast Encounter for screening mammogram for malignant neoplasm of breast DEXA AXIAL SKELETON BONE DENSITY 1 OR MORE SITES Schedule Routine, Read Routine (OP Routine) 07/01/2023 7:38 AM CLAMMER 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 A 1 year screening mammogram is recommended. The patient has been or will be contacted. We recommend annual screening mammography for women at average risk of breast cancer beginning at age 40, based on guidelines of the [place] [employer] (ACR Practice Parameter for the Performance of Screening and Diagnostic Mammography) and [place] [employer]nec[employer]. For women with and elevated risk of breast cancer, please refer to the ACR Practice Parameter for specific screening recommendations. The patient will be entered into a reminder system with a target due date of 1 year for her next screening exam. Narrative 10/22/2023 8:59 AM CDT Screening Mammogram Right W Analisa Unilateral Only: 10/22/23 The study was acquired using full field digital technology and interpreted from soft copy. 2D digital mammographic views, as well as 3D digital tomosynthesis were performed in the CC and MLO projections. CLINICAL: Intraductal carcinoma in situ of left breast Encounter for screening mammogram for malignant neoplasm of breast. Medical history includes breast cancer. Prior left mastectomy. No known family history of breast cancer. COMPARISONS: 10/16/2022 Screening Mammogram Right W Analisa Unilateral Only 11/27/2021 US Breast Right Limited 11/21/2021 MRI Breast Bilateral W WO Contrast 09/29/2021 Breast Imaging Screening Outside Reference 07/17/2020 Breast Imaging Screening Outside Reference 07/12/2019 Breast Imaging Screening Outside Reference BREAST TISSUE: The right breast has scattered areas of fibroglandular density. FINDINGS: No suspicious findings are identified in the right breast on mammogram. us Wayne Curtis MD IMG MAMMO PROCEDURES Final Re sult * Dexa Axial Skeleton Bone Density 1 or 2 Site (07/01/2023 7:38 AM CLAMMER) Anatomical Region Laterality Modality Body N/A Mammography 07/01/2023 9:44 AM CLAMMER Narrative 07/01/2023 9:46 AM CLAMMER EXAM DESCRIPTION: DEXA AXIAL SKELETON BONE DENSITY 1 OR MORE SITES REASON FOR STUDY: 68 y/o year old F with given history of: postmenopausal osteoporosis Practice Management Consultant/Model: [employer] A (S/N [id number]) CLINICAL INFORMATION: Current height: 60 inches Maximum height: 60 inches Weight: 107 pounds Risk factors: None COMPARISON: None available FINDINGS: AP LUMBAR SPINE L1-L4: Total BMD is 0.815 g/cm2 T-score is -2.1 LEFT HIP: Total BMD is 0.731 g/cm2 T-score is -1.7 Femoral neck BMD is 0.724 g/cm2 T-score is -1.1 FRAX: 10 year risk for a major osteoporotic fracture is 7.8 %, 10 year risk for a hip fracture is 0 point % IMPRESSION: Low bone mass REFERENCE: Bone mineral density: Normal (T-score above or = -1.0) Low bone mass (T-score between -1.0 and -2.5) replaces the previously used term osteopenia Osteoporosis (T-score = or below -2.5) Medical evaluation for secondary causes of low bone mineral density may be appropriate. FRAX is a World Health Organization validated fracture risk assessment tool that calculates a person's 10 year probability of a major osteoporosis related fracture and hip fracture. According to the National Osteoporosis Foundation guidelines, postmenopausal women and men age 50 or older with low bone mass and a 10 year probability of a major osteoporosis related fracture = or greater than 20% or a 10 year probability of a hip fracture = or greater than 3% should be considered for treatment. For further information, including treatment recommendations, please refer to the 2019 ISCD Official Positions (http://www.iscd.org) and the NOF's Clinician's Guide to Prevention and Treatment of Osteoporosis (http://www.nof.org/professionals/clinical-guidelines) THIS IS AN ELECTRONICALLY VERIFIED FINAL REPORT 07/01/2023 9:46 AM - Electronically signed by Roselia Rome M.D. TW: TW Report ID: [id number] Reading Location: [id number] Procedure Note Roselia Rome MD - 07/01/2023 EXAM DESCRIPTION: DEXA AXIAL SKELETON BONE DENSITY 1 OR MORE SITES REASON FOR STUDY: 68 y/o year old F with given history of:postmenopausal osteoporosis Practice Management Consultant/Model: [employer] (S/N [id number]) CLINICAL INFORMATION: Current height: 60 inches Maximum height: 60 inches Weight: 107 pounds Risk factors: None COMPARISON: None available FINDINGS: AP LUMBAR SPINE L1-L4: Total BMD is 0.815 g/cm2 T-score is -2.1 LEFT HIP: Total BMD is 0.731 g/cm2 T-score is -1.7 Femoral neck BMD is 0.724 g/cm2 T-score is -1.1 FRAX: 10 year risk for a major osteoporotic fracture is 7.8 %, 10 year risk fora hip fracture is 0 point % IMPRESSION: Low bone mass REFERENCE: Bone mineral density: Normal (T-score above or = -1.0) Low bone mass (T-score between -1.0 and -2.5) replaces thepreviously used term osteopenia Osteoporosis (T-score = or below -2.5) Medical evaluation for secondary causes of low bone mineral density may be appropriate. FRAX is a World Health Organization validated fracture risk assessmenttool that calculates a person's 10 year probability of a major osteoporosisrelated fracture and hip fracture. According to the National OsteoporosisFoundation guidelines, postmenopausal women and men age 50 or older with low bonemass and a 10 year probability of a major osteoporosis related fracture = or greater than 20% or a 10 year probability of a hip fracture = or greaterthan 3% should be considered for treatment. For further information, including treatment recommendations, please referto the 2019 ISCD Official Positions (http://www.iscd.org) and the NOF's Clinician's Guide to Prevention and Treatment of Osteoporosis (http://www.nof.org/professionals/clinical-guidelines) THIS IS AN ELECTRONICALLY VERIFIED FINAL REPORT 07/01/2023 9:46 AM - Electronically signed by Roselia Rome M.D. TW: TW Report ID: [id number] Reading Location: [place] [address] Frida Nieto NP IMG DXA PROCEDURES F inal Result from Last 3 Months or Most Recently Relevant to Health Maintenance Insurance [facility] MEDICARE [facility] [place]NOTE 2] MEDICARE AETNA Care Teams Mechanical Technical Service Specialist Relationship Specialty Start Date End Date Shadia Shearer NP [address] [place] [id number] PCP - General Nurse Practitioner 11/27/21 Nieves Nathan MD Radiation Oncologist Radiation Oncology 11/19/21 Wayne Curtis MD [address] [place] [address] [id number] Surgeon Surgery 11/19/21 Frida Nieto NP [address] [place] [address] [phone] Nurse Practitioner Medical Oncology 08/25/23
--- OUTSIDE RECORDS SUMMARY | 2024-09-08 15:48 | XMS_ITS | Clinical Summary ---
Author Organization [facility] Address [address] [place] [id number] Care Team Providers Care Cell Tuber Machine Name Role Phone Nieves Nathan MD Unavailable [phone] Wayne Curtis MD Unavailable [phone] Shadia Shearer NP Primary Care Provider [phone] Frida Nieto NP Unavailable + [phone] Allergies Active Allergy Reactions Criticality Noted Date [...] 11/07/2021:Stage 0(cTis (DCIS), cN0, cM0, G3, ER+, CA-, HER2: Not Assessed) - Signed by Nieves [...] function and electrolytes. Nephrolithiasis 05/23/2018 Osteopenia 09/12/2012 Surgical History Surgery Date Site/Laterality Comments CA TOTAL ABDOMINAL HYSTERECT W/WO RMVL TUBE OVARY Hysterectomy - (Added by TW Conv) HYSTERECTOMY 07/26/2014 - 07/25/2015 CYSTOSCOPY W/ STONE MANIPULATION 07/26/2015 - 07/25/2016 SKIN CANCER EXCISION 07/26/2017 - 07/25/2018 frederic Abdias COLONOSCOPY BREAST BIOPSY 12/12/2021 Left MASTECTOMY Left Medical History Medical History Date Comments Breast cancer (HCC) Hypertension Chronic kidney disease hx of kid archie stones Osteoporosis Family History Medical History Relation Name Comments Heart disease Father Heart Disease - (Added by TW Conv) Hypertension Father Hypertension - (Added by TW Conv) Penile cancer Father Colon cancer Mother Diabetes Mother Diabetes Mellit us - (Added by TW Conv) Hypertension Mother Hypertension - (Added by TW Conv) Migraines Other 1 Migraine Headac he - (mother) (Added by TW Conv) Hypertension Other 2 Hypertension - (Added by TW Conv) Heart disease Other 3 Heart Disease - (Added by TW Conv) Diabetes Other 4 Diabetes Mellit us - (Added by TW Conv) Lung cancer Paternal Grandfather Relation Name Status Comments Father Mother Other 1 Other 2 Other 3 Other 4 Paternal Grandfather Social History Tobacco Use Types Packs/Day Years [...] on file Legal Sex Female 12:41 AM LASER ENGINEER Gender Identity Female 2018 8:08 AM CDT Sexual Orientation Not on file Occupation Industry Job Start Date Job End Date Retired Not on file Not on file Not on file Obstetrics History Para Term AB IAB SAB Ectopic Multiple Livin g Live Births 3 3 3 Date Outcome GA Total Labor Labor/2nd/3rd Weight Sex Type Anes PTL Maxine A1 A5 Name Clin Term Term Term Last Filed Vital Signs Vital Sign Reading [...] cm (5' 0.5 ) 08/11/2023 8:06 AM LASER ENGINEER Body Mass Index 20.28 08/11/2023 8:06 AM LASER ENGINEER Plan of Treatment Health Maintenance Due Date Last Done Comments Colon Cancer Screening-Colonoscopy 1955 Depression Screening 1955 Fall Risk Assessment 1955 Hepatitis C Screening 1955 DTaP/Tdap/Td Vaccine (1 - Tdap) 1966 Hepatitis B Screening 1973 Zoster Vaccine (1 of 2) 2005 Pneumococcal vaccine 65+ (1 of 1 - PCV) 2020 Well Visit 65+ 2020 Covid-19 Vaccine (3 - 2023-2 5 season) 2024 01/31/2021, 01/03/2021 Influenza Vaccine (#1) 2024 Breast Cancer Screening-Mammogram 10/21/2024 024, 10/16/2022 Osteoporosis Screening-Bone Density Scan 07/01/2025 07/01/2023, 07/15/2015, 07/09/2014, Additional history exists Procedures Procedure Name Priority Date/Time Associated Diagnosis Comments SCREENING MAMMOGRAM RIGHT W ELIOT UNILATERAL ONLY Schedule Routine, Read Routine (OP Routine) 10/22/2023 8:22 AM CDT Intraductal carcinoma in situ of left breast Encounter for screening mammogram for malignant neoplasm of breast DEXA AXIAL SKELETON BONE DENSITY 1 OR MORE SITES Schedule Routine, Read Routine (OP Routine) 07/01/2023 7:38 AM LASER ENGINEER 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 For women with and elevated risk of breast cancer, please refer to the ACR Practice Parameter for specific screening recommendations. The patient will be entered into a reminder system with a target due date of 1 year for her next screening exam. Narrative 10/22/2023 8:59 AM CDT Screening Mammogram Right W Eliot Unilateral Only: 10/22/23 The study was acquired [...] cancer. COMPARISONS: 10/16/2022 Screening Mammogram Right W Eliot Unilateral Only 11/27/2021 US Breast Right Limited [...] 1 or 2 Site (07/01/2023 7:38 AM LASER ENGINEER) Anatomical Region Laterality Modality Body N/A Mammography 07/01/2023 9:44 AM LASER ENGINEER Narrative 07/01/2023 9:46 AM LASER ENGINEER EXAM DESCRIPTION: DEXA AXIAL SKELETON BONE DENSITY 1 OR MORE SITES REASON FOR STUDY: 68 y/o year old F with given history of: postmenopausal osteoporosis Railroad Hand/Model: [employer] A (S/N [id number]) CLINICAL INFORMATION: Current height: 60 inches Maximum [...] Roselia Rome M.D. TW: TW Report ID: [id number] Reading Location: [place] [id number] Procedure Note Roselia Rome MD - 07/01/2023 EXAM DESCRIPTION: DEXA AXIAL SKELETON BONE DENSITY 1 OR MORE SITES REASON FOR STUDY: 68 y/o year old F with given history of:postmenopausal osteoporosis Railroad Hand/Model: [employer] A (S/N [id number]) CLINICAL INFORMATION: Current height: 60 inches Maximum [...] Roselia Rome M.D. TW: TW Report ID: [id number] Reading Location: [place] [address] Frida Nieto NP IMG DXA PROCEDURES F inal Result from Last 3 Months or Most Recently Relevant to Health Maintenance Insurance [facility] ACCESS CHOICE MEDICARE [facility] MEDICARE AETNA Care Teams Cell Tuber Machine Relationship Specialty Start Date End Date Shadia Shearer NP [address] [place] [id number] PCP - General Nurse Practitioner 11/27/21 Nieves Nathan MD Radiation Oncologist Radiation Oncology 11/19/21 Wayne Curtis MD [address] [place] [address] [id number] Surgeon Surgery 11/19/21 Frida Nieto NP [address] [place] [address] [phone] Nurse Practitioner Medical Oncology 08/25/23
--- OUTSIDE RECORDS SUMMARY | 2024-09-08 15:48 | XMS_ITS | Encounter Summary ---
Author Organization [facility] Address [address] [place] [address] Phone Care Team Providers Care Boat Hoist Operator Name Role Phone Radu Lundy MD Primary Care Provider Nieves Nathan MD Unavailable [phone] Wayne Curtis MD Unavailable [phone] Roni London DO Unavailable [phone] Shadia Shearer NP Primary Care Provider [phone] Frida Nieto REAL ESTATE AGENT/BROKER Unavailable [phone] Encounter Details Date Type Department Care Team (Late st Contact Info) Description 06/03/2018 Telephone [facility] Cardiology [address] [facility] [address]th [place] [address] [place] [id number] Khanh Rosario MD [facility] [place] [address] Social History Tobacco Use Types Packs/Day Years Used Date Smoking Tobacco: Never Smokeless Tobacco: Never Comments Unknown Sex and Gender Information Value Date Recorded Sex Assigned at Not on file Legal Sex Female 12:41 AM PRIVATE CHEF Gender Identity Female 2018 8:08 AM CDT Sexual Orientation Not on file documented as of this encounter Plan of Treatment Not on file documented as of this encounter Visit Diagnoses Not on filedocumented in this encounter Care Teams Boat Hoist Operator Relationship Specialty Start Date End Date Radu Lundy MD [address] [facility] [address] [place] [address] PCP - General 08/25/17 11/26/21 Shadia Shearer NP [address] [address] PCP - General Nurse Practitioner 11/27/21 Nieves Nathan MD [address] [facility] [address] [place] [address] Radiation Oncologist Radiation Oncology 11/19/21 Wayne Curtis MD [facility] [id number] Surgeon Surgery 11/19/21 Roni London DO [facility] [id number] Medical Oncologist/Machine Fastener Hematology and Oncology 11/26/21 08/24/23 Frida Nieto, FENG [facility] [address] Nurse Practitioner Medical Oncology 08/25/23 documented as of this encounter
[2024-09-08 15:51] VITALS: BP 127/62; PULSE 94; RESP 16; TEMP 37; O2SAT 100
== END 2024-09-08 16:07 | disposition short-term general hospital (02) ==
PROVIDERS: Emergency Provider Nurse Practitioner Family; PCP Nurse Practitioner
DX: R10.9 Unspecified abdominal pain (principal); Z79.82 Long term (current) use of aspirin
CPT/HCPCS: 99212; G0463